=== PATIENT | male | born 1990 | race Caucasian/White ===

== ENCOUNTER 2021-09-02 18:26 | Emergency (ER) | payer OTHER ==
[2021-09-02 18:32] VITALS: BP 106/60; PULSE 72; TEMP 98.5; BMI 31.2
== END 2021-09-02 20:45 | disposition home or self-care (01) ==
LOC: JERFT 18:26 → JER 18:26 → JERFT 20:45
DX: R05.1 Acute cough (principal); J02.9 Acute pharyngitis, unspecified; Z11.52 Encounter for screening for COVID-19
CPT/HCPCS: 87880; 99283-25; C9803; U0003; U0005

== ENCOUNTER 2022-09-19 20:45 | Emergency (ER) | payer OTHER ==
[2022-09-19 20:49] VITALS: BP 96/69; PULSE 60; RESP 17; TEMP 98.2; BMI 30.9
[2022-09-20] MEDS ORDERED: CEPHALEXIN 250 MG/5 ML ORAL SUSPENSION PO ONE (00:23)
[2022-09-20] MEDS ORDERED: DIPHTH,PERTUSS(ACELL),TET 0.5 ML DISP.SYRIN IM ONE ×2 (00:24→00:35)
[2022-09-20] MEDS ORDERED: CEPHALEXIN MONOHYDRATE 500 MG CAPSULE (UD) ONE (00:35)
== END 2022-09-20 01:03 | disposition home or self-care (01) ==
LOC: JER 20:45 → JERFT 20:45 → JER 09-20 01:03
PROC: 3E0234Z Introduction of Serum, Toxoid and Vaccine into Muscle, Percutaneous Approach (ICD-10-PCS; principal; 2022-09-19)
DX: S61.011A Laceration without foreign body of right thumb without damage to nail, initial encounter (principal); W31.2XXA Contact with powered woodworking and forming machines, initial encounter
CPT/HCPCS: 90471; 90715; 99284-25

== ENCOUNTER 2023-05-04 16:13 | Emergency (ER) | payer OTHER ==
[2023-05-04 16:21] VITALS: BP 104/66; PULSE 70; RESP 18; TEMP 97.6; BMI 31.1
[2023-05-04] MEDS ORDERED: KETOROLAC TROMETHAMINE 30 MG/1 ML VIAL IM ONE (17:18)
[2023-05-04] MEDS ORDERED: KETOROLAC TROMETHAMINE 30 MG/1 ML VIAL ONE (17:26)
== END 2023-05-04 17:40 | disposition home or self-care (01) ==
LOC: JERFT 16:13 → JER 16:13 → JERFT 17:40
PROC: 0HQ0XZZ Repair Scalp Skin, External Approach (ICD-10-PCS; principal; 2023-05-04)
PROC: 3E0233Z Introduction of Anti-inflammatory into Muscle, Percutaneous Approach (ICD-10-PCS; 2023-05-04)
DX: S01.01XA Laceration without foreign body of scalp, initial encounter (principal); W20.8XXA Other cause of strike by thrown, projected or falling object, initial encounter
CPT/HCPCS: 12002-25; 96372; 99284-25

== ENCOUNTER 2023-05-08 08:20 | Emergency (ER) | payer OTHER ==
[2023-05-08 08:24] VITALS: BP 109/63; PULSE 65; RESP 18; TEMP 98.2; BMI 30.1
[2023-05-08] MEDS ORDERED: LORATADINE 10 MG TABLET PO ONE (08:44)
[2023-05-08] MEDS ORDERED: DEXAMETHASONE 4 MG TABLET (FP) PO ONE (08:45)
[2023-05-08] MEDS ORDERED: DEXAMETHASONE SOD PHOSPHATE 10 MG/1 ML VIAL ONE (08:50)
[2023-05-08] MEDS ORDERED: LORATADINE 10 MG TABLET ONE (08:50)
== END 2023-05-08 09:45 | disposition home or self-care (01) ==
LOC: JERFT 08:20
DX: L50.0 Allergic urticaria (principal)
CPT/HCPCS: 99283-25

== ENCOUNTER 2023-05-13 17:14 | Emergency (ER) | payer OTHER ==
[2023-05-13 17:24] VITALS: BP 101/63; PULSE 73; RESP 18; TEMP 97.9; BMI 31.1
== END 2023-05-13 17:52 | disposition home or self-care (01) ==
LOC: JER 17:14 → JERFT 17:14
DX: Z48.02 Encounter for removal of sutures (principal)
CPT/HCPCS: 99281-25

== ENCOUNTER 2024-07-04 10:26 | Emergency (ER) | payer OTHER ==
[2024-07-04 10:48] VITALS: BP 103/65; PULSE 67; RESP 18; TEMP 98.2; BMI 32.9
== END 2024-07-04 11:41 | disposition home or self-care (01) ==
LOC: JERFT 10:26
PROC: 0XQTXZZ Repair Left Ring Finger, External Approach (ICD-10-PCS; principal; 2024-07-04)
DX: S61.215A Laceration without foreign body of left ring finger without damage to nail, initial encounter (principal); W27.5XXA Contact with paper-cutter, initial encounter; Y99.0 Civilian activity done for income or pay
CPT/HCPCS: 99283-25